=== PATIENT | female | born 1970 | race Caucasian/White ===

== ENCOUNTER 2025-01-29 14:43 | Outpatient (CLI) | payer BC, MEDICAID, SELFPAY ==
--- NOTE | 2025-01-29 14:47 | USCV_ITS ---
Lulu Alvarado Age: 54 Gender: F : 1970 Exam Date: 01/29/2025 15:19 Ordering Phys: Eliazar Vila MD Technologist: USR [place]am [place] [facility] [place]ication: right leg pain HISTORY: Lower extremity pain-RIGHT PROCEDURES: Venous duplex imaging was performed in only the right lower extremity. The following venous structures were evaluated: common femoral vein, profunda vein, proximal portion of the greater saphenous vein, superficial femoral vein, and the popliteal vein. In addition, the posterior tibial and peroneal trunk were evaluated. FINDINGS: No evidence of DVT seen in any vessel visualized at this time. CONCLUSIONS No evidence of right lower extremity DVT. Gus Grayson MD (Electronically Signed) Final Date: 29 January 2025 15:45 S
== END 2025-01-29 14:44 | disposition home or self-care (01) ==
LOC: RAD 14:45
PROVIDERS: PCP Family Medicine; Visit Provider Family Medicine
DX: D75.1 Secondary polycythemia (principal); M79.604 Pain in right leg
CPT/HCPCS: 93971